=== PATIENT | female | born 1960 | race Caucasian/White ===

== ENCOUNTER 2018-11-11 13:01 | Observation (INO) | payer BC ==
[~2018-11-11] VITALS: Ht 154.9 cm; Wt 56.5 kg
[2018-11-11] MEDS ORDERED: HYDROmorphONE 2 MG/ML SYG IV STA (15:57)
[2018-11-11] MEDS ORDERED: ONDANSETRON 4 MG INJ IV STA (15:57)
[2018-11-11] MEDS ORDERED: SOD CHLORIDE 0.9% 0 ML IV ONE (16:46)
[2018-11-11] MEDS ORDERED: ONDANSETRON 4 MG INJ IV PRN ×2 (17:00→19:00)
[2018-11-11] MEDS ORDERED: ACETAMINOPHEN 325 MG TAB PO PRN ×2 (17:00→19:00)
[2018-11-11] MEDS ORDERED: OXYC10TA45 PO (17:07)
[2018-11-11 18:06] VITALS: BP 103/59; PULSE 96; RESP 18
[2018-11-11 18:13] VITALS: Ht 154.9 cm; Wt 56.5 kg
--- NOTE | 2018-11-11 18:45 | ERD ---
ER Documentation Chief Complaint Chief Complaint SENT BY MD FOR PORT PLACEMENT AND BEGIN CHEMO HPI Patient is a 58-year-old female with pancreatic cancer who presents with pain. The patient was sent by Dr. Lentz her oncologist for admission for pain control as well as placement of a port and starting chemotherapy. The patient h as upper abdominal pain which is constant and sharp in nature. It radiates to her back. She does not currently have a primary doctor. ROS All systems reviewed and are negative except as per history of present illness. Medications Home Meds Reported Medications Oxycodone Hcl* (Oxycontin*) 10 Mg Tab.sr.12h, 10 MG PO NEEDED, TAB 11/11/18 Allergies Allergies: Coded Allergies: No Known Allergy (Unverified , 11/11/18) PMhx/Soc Positive for pancreatic cancer History of Surgery: No (ovaries, fallopianj tube removed, breast impant) Anesthesia Reaction: No Hx Neurological Disorder: No Hx Respiratory Disorders: No Hx Cardiac Disorders: No Hx Psychiatric Problems: No Hx Miscellaneous Medical Probl: No Hx Alcohol Use: No Hx Substance Use: No Hx Tobacco Use: No Smoking Status: Never smoker FmHx Family History: diabetes Physical Exam Vitals Vital Signs Date Temp Pulse Resp B/P (MAP) Pulse Ox O2 O2 Flow FiO2 Time Delivery Rate 11/11/18 83 18 101/69 98 Room Air 17:00 (80) 11/11/18 98.4 102 18 120/66 99 13:04 (84) Physical Exam Const: No acute distress Head: Atraumatic Eyes: Normal Conjunctiva ENT: Normal External Ears, Nose and Mouth. Neck: Full range of motion. No meningismus. Resp: Clear to auscultation bilaterally Cardio: Regular rate and rhythm, no murmurs Abd: Soft, epigastric pain without rebound or guarding Skin: No petechiae or rashes Back: No midline or flank tenderness Ext: No cyanosis, or edema Neur: Awake and alert Psych: Normal Mood and Affect Result Diagram: 11/11/18 1609 11/11/18 1609 Results 24 hrs Laboratory Tests Test 11/11/18 16:09 White Blood Count 10.6 10^3/ul Red Blood Count 2.68 10^6/ul Hemoglobin 6.5 g/dl Hematocrit 20.4 % Mean Corpuscular Volume 76.1 fl Mean Corpuscular Hemoglobin 24.3 pg Mean Corpuscular Hemoglobin Concent 31.9 g/dl Red Cell Distribution Width 16.6 % Platelet Count 534 10^3/UL Mean Platelet Volume 8.3 fl Immature Granulocytes % 0.300 % Neutrophils % % Segmented Neutrophils % (Manual) 73 % Lymphocytes % % Lymphocytes % (Manual) 14 % Monocytes % % Monocytes % (Manual) 3 % Eosinophils % % Eosinophils % (Manual) 7 % Basophils % % Basophils % (Manual) 3 % Nucleated Red Blood Cells % 0.0 /100WBC Immature Granulocytes # 0.030 10^3/ul Neutrophils # 10^3/ul Lymphocytes (Manual) 1.4 10^3/ul Lymphocytes # 10^3/ul Monocytes # 10^3/ul Monocytes # (Manual) 0.3 10^3/ul Eosinophils # 10^3/ul Basophils # 10^3/ul Basophils # (Manual) 0.3 10^3/ul Nucleated Red Blood Cells # 10^3/ul Pathologist Review (Hematology) Platelet Estimate INCREASED Polychromasia 1+ Hypochromasia 2+ Anisocytosis 1+ Microcytosis 1+ Prothrombin Time 14.7 Sec Prothrombin Time Ratio 1.1 INR International Normalized Ratio 1.14 Activated Partial Thromboplast Time 22.8 Sec Path Consult Signing Pathologist GEMMA PRICE MD Sodium Level 135 mmol/L Potassium Level 4.0 mmol/L Chloride Level 97 mmol/L Carbon Dioxide Level 26 mmol/L Anion Gap 12 Blood Urea Nitrogen 19 mg/dl Creatinine 0.60 mg/dl Est Glomerular Filtrat Rate mL/min > 60 mL/min Glucose Level 154 mg/dl Calcium Level 8.8 mg/dl Total Bilirubin 0.5 mg/dl Direct Bilirubin 0.00 mg/dl Indirect Bilirubin 0.5 mg/dl Aspartate Amino Transf (AST/SGOT) 40 IU/L Alanine Aminotransferase (ALT/SGPT) 12 IU/L Alkaline Phosphatase 148 IU/L Troponin I < 0.012 ng/ml Total Protein 8.1 g/dl Albumin 3.8 g/dl Globulin 4.30 g/dl Albumin/Globulin Ratio 0.88 Lipase 1585 U/L Current Medications Medications Dose Sig/Edy Start Time Status Last (Trade) Ordered Route PRN Stop Time Admin Dose Reason Admin 1 mg ONCE STAT 11/11/18 DC 11/11/18 Hydromorphone IV 15:57 11/11/18 16:07 HCl 15:58 (Dilaudid) Ondansetron 4 mg ONCE STAT 11/11/18 DC 11/11/18 HCl (Zofran IV 15:57 11/11/18 16:06 Inj) 15:58 Ondansetron 4 mg BRIDGE ORDER 11/11/18 HCl (Zofran PRN IV 17:00 11/12/18 Inj) NAUSEA/VOMITI 16:59 NG 650 mg ER BRIDGE 11/11/18 Acetaminophen PRN PO 17:00 11/12/18 (Tylenol .MILD PAIN 16:59 Tab) 1-3 OR TEMP Sodium 0 ml @ 0 Q0M ONCE 11/11/18 DC Chloride mls/hr IV 16:46 11/11/18 16:47 Procedures/MDM Patient is a 58-year-old female who presents with anemia and pancreatic cancer. She has an elevated lipase as well. The patient will be admitted to the care of Dr. Ruiz from [facility] to a medical surgical bed. I spoke with Dr. Calvo from oncology who will see the patient in consultation. The patient was ordered 2 units of packed red blood cells for hemoglobin of 6.5. Critical Care: Time: 35 minutes excluding all billable procedures. Treatments/Evaluations: Close monitoring and treatment of unstable vital signs, cardiorespiratory, and neurologic status, while maintaining tight balance of fluid, respiratory, and cardiac interventions. Departure Diagnosis: Primary Impression: Pancreatic cancer Pancreatic malignancy location: unspecified Qualified Codes: C25.9 - Malignant neoplasm of pancreas, unspecified Additional Impressions: Anemia Anemia type: unspecified type Qualified Codes: D64.9 - Anemia, unspecified Abdominal pain Abdominal location: epigastric Qualified Codes: R10.13 - Epigastric pain Condition: SHANNON Dunaway MD Nov 11, 2018 18:44
[2018-11-11] MEDS ORDERED: SOD CHLORIDE 0.9% 250 ML IV* ONE (19:00)
[2018-11-11] MEDS ORDERED: FUROSEMIDE 40 MG INJ IV SCH (19:00)
[2018-11-11] MEDS ORDERED: ACETAMINOPHEN 325 MG TAB PO SCH (19:00)
[2018-11-11 19:29] VITALS: BP 101/65; PULSE 87; RESP 16
[2018-11-11] MEDS: morphine 4 MG/ML VIAL IV PRN ×2 (19:42→22:47)
[2018-11-12] MEDS: morphine 4 MG/ML VIAL IV PRN ×7 (01:10→15:01)
[2018-11-12 01:40] VITALS: BP 109/73; PULSE 87; RESP 16
[2018-11-12 07:15] VITALS: BP 108/74; PULSE 87; RESP 16
[2018-11-12] MEDS: morphine 2 MG INJ IV PRN ×2 (08:14→13:08)
--- NOTE | 2018-11-12 10:51 | QN ---
Documentation Comment 1. pancreatic ca 2. fe deficient anemia, start fe 3. await portacath timing RODO GREENE MD Nov 12, 2018 10:51
[2018-11-12] MEDS ORDERED: POLYETHYLENE GLYCOL 17 GM PACKET PO PRN (11:00)
[2018-11-12] MEDS ORDERED: SENNA TAB PO PRN (11:00)
[2018-11-12] MEDS ORDERED: FERROUS SULFATE (EC) 325 MG TAB PO SCH (13:00)
--- NOTE | 2018-11-12 14:12 | CONS ---
Assessment/Plan Assessment/Plan Assessment/Plan (Daily) 58 yo F with recent diagnosis of metastatic pancreatic cancer presents for port placement and administration of chemotherapy. Found to be anemic upon admission, responded well to PRBC transfusion. If there is significant delay to initiate chemotherapy, will discuss with primary oncologist about close outpatient follow-up. - pain control- home regimen: morphine ER 30q12, oxycodone 10mg q6 prn - bowel regimen: senna, miralax - continue iron Thank you for allowing me to participate in this patient's care. Consultation Date/Type/Reason Admit Date/Time Nov 11, 2018 at 17:05 Date of Consultation: Nov 12, 2018 Reason for Consultation pancreatic cancer Date/Time of Note DATE: 11/12/18 TIME: 12:56 Hx of Present Illness 58 yo F with remote history of cervical cancer and recent diagnosis of metastatic pancreatic cancer presents for port placement and initiation of chemotherapy. She is followed by Dr Hugo Lentz as an outpatient. She initially presented with 20lb weight loss, significant abdominal pain and nausea and vomiting. She underwent imaging and liver biopsy with results compatible with GI cancer of pancreatic origin. She is due to start FOLFIRINOX chemotherapy which requires port placement. She has persistent significant abdominal pain. On admission, she was noted to be anemic, hemoglobin 6.5 and received a blood transfusion. Constitutional: No no complaints, No improved, No chills, No diaphoresis, No disoriented, No febrile, No poor po, No requiring IVF, No requiring O2, No other Eyes: No no complaints, No pain, No discharge, No redness, No visual change, No other ENT: No no complaints, No bleeding, No pain, No congestion, No discharge, No dysphagia, No sore throat, No other Respiratory: No no complaints, No pain, No cough, No pleuritic pain, No shortness of breath, No sputum, No wheezing, No other Cardiovascular: No no complaints, No chest pain, No edema, No lightheadedness, No orthopenea, No palpitations, No paroxysmal nocturnal dyspnea, No other Gastrointestinal: pain, constipation, decreased appetite Genitourinary: No no complaints, No bleeding, No dysuria, No discharge, No flank pain, No hematuria, No other Musculoskeletal: No no complaints, No back pain, No bone/joint pain, No neck pain, No restricted range of motion, No swelling, No other Skin: No no complaints, No bruising, No erythema, No laceration, No pruritis, No rash, No skin lesions, No other Neurologic: No no complaints, No confusion, No dizziness, No focal-weakness, No headache, No syncope, No seizure, No other Endocrine: No no complaints, No polyuria, No polydypsia, No dry skin, No temp intolerance, No other Lymphatic: No no complaints, No adenopathy, No tender nodes, No lymphadema, No other Psychological: No no complaints, No nl mood/affect, No anxiety, No confusion, No depression, No suicidal, No other Immunologic: No no complaints, No immunodeficiency, No pruritis, No rhinitis, No urticaria, No other Past Medical History Medical History: other (history of cervical cancer s/p radiation and chemotherapy) Home Meds Reported Medications Oxycodone Hcl* (Oxycontin*) 10 Mg Tab.sr.12h, 10 MG PO NEEDED, TAB 11/11/18 Medications Current Medications Ondansetron HCl (Zofran Inj) 4 mg BRIDGE ORDER PRN IV NAUSEA/VOMITING; Start 11/11/18 at 17:00; Stop 11/12/18 at 16:59 Acetaminophen (Tylenol Tab) 650 mg ER BRIDGE PRN PO .MILD PAIN 1-3 OR TEMP; Start 11/11/18 at 17:00; Stop 11/12/18 at 16:59 Furosemide (Lasix) 40 mg ONCE IV Last administered on 11/12/18at 00:42; Admin Dose 40 MG; Start 11/11/18 at 19:00; Stop 11/12/18 at 18:59 Acetaminophen (Tylenol Tab) 650 mg ONCE PO Last administered on 11/11/18at 20:40; Admin Dose 650 MG; Start 11/11/18 at 19:00; Stop 11/12/18 at 18:59 Acetaminophen (Tylenol Tab) 650 mg Q4H PRN PO MILD PAIN(1-3)OR ELEVATED TEMP; Start 11/11/18 at 19:00 Hydralazine HCl (Apresoline) 25 mg Q6H PRN PO sbp>160; Start 11/11/18 at 19:00 Ondansetron HCl (Zofran Inj) 4 mg Q4H PRN IV NAUSEA AND/OR VOMITING; Start 11/11/18 at 19:00 Morphine Sulfate (morphine) 2 mg Q2H PRN IV pain 3-6/10 Last administered on 11/12/18at 13:08; Admin Dose 2 MG; Start 11/11/18 at 19:00 Morphine Sulfate (morphine) 4 mg Q2H PRN IV SEVERE PAIN LEVEL 7-10 Last admi nistered on 11/12/18at 11:13; Admin Dose 4 MG; Start 11/11/18 at 19:00 Ferrous Sulfate (Ferrous Sulfate (Ec)) 325 mg TID PO Last administered on 11/12/18at 13:07; Admin Dose 325 MG; Start 11/12/18 at 13:00 Polyethylene Glycol (Miralax) 17 gm DAILY PRN PO CONSTIPATION; Start 11/12/18 at 11:00 Senna (Senokot) 2 tab BID PRN PO CONSTIPATION; Start 11/12/18 at 11:00 Allergies: Coded Allergies: No Known Allergy (Unverified , 11/11/18) Family History Significant Family History: no pertinent family hx Social History Smoking Status: Never smoker Exam/Review of Systems Exam Vitals Vital Signs Date Temp Pulse Resp B/P (MAP) Pulse Ox O2 O2 Flow FiO2 Time Delivery Rate 11/12/18 98.1 87 16 108/74 97 07:15 (85) 11/12/18 Room Air 01:40 Intake and Output 11/11/18 11/11/18 11/12/18 1515:00 23:00 07:00 IntakeIntake Total 930 ml OutputOutput Total 700 ml BalanceBalance 230 ml Constitutional: alert, oriented, well developed Psych: nl mood/affect Head: normocephalic, atraumatic Eyes: nl conjunctiva, nl sclera ENMT: mucosa pink and moist Neck: supple Respiratory: clear to auscultation, normal air movement Cardiovascular: regular rate and rhythm Gastrointestinal: soft, tender Musculoskeletal: nl extremities to inspection Extremities: normal pulses Neurological: BODY JOINER II-XII intact Results Result Diagram: 11/12/18 1059 11/12/18 1059 Results 24hrs Laboratory Tests Test 11/11/18 16:09 11/11/18 19:48 11/12/18 00:25 11/12/18 10:59 White Blood Count 10.6 9.5 Red Blood Count 2.68 L 4.33 # Hemoglobin 6.5 *L 11.4 #L Hematocrit 20.4 L 35.2 #L Mean Corpuscular 76.1 L 81.3 L Volume Mean Corpuscular 24.3 L 26.3 L Hemoglobin Mean Corpuscular 31.9 L 32.4 Hemoglobin Concent Red Cell 16.6 H 15.9 H Distribution Width Platelet Count 534 H 442 H Mean Platelet 8.3 8.2 Volume Immature 0.300 0.200 Granulocytes % Neutrophils % 63.7 Segmented 73 Neutrophils % (Manual) Lymphocytes % 13.5 L Lymphocytes % 14 L (Manual) Monocytes % 7.7 Monocytes % 3 (Manual) Eosinophils % 14.4 H Eosinophils % 7 (Manual) Basophils % 0.5 Basophils % 3 H (Manual) Nucleated Red 0.0 0.0 Blood Cells % Immature 0.030 0.020 Granulocytes # Neutrophils # 6.0 Lymphocytes 1.4 (Manual) Lymphocytes # 1.3 Monocytes # 0.7 Monocytes # 0.3 (Manual) Eosinophils # 1.4 H Basophils # 0.1 Basophils # 0.3 H (Manual) Nucleated Red 0.0 Blood Cells # Pathologist Review (Hematology ) Platelet Estimate INCREASED Polychromasia 1+ Hypochromasia 2+ Anisocytosis 1+ Microcytosis 1+ Absolute 0.044 Reticulocyte Count Percent 1.6 H Reticulocyte Count Prothrombin Time 14.7 14.6 Prothrombin Time 1.1 1.1 Ratio INR International 1.14 1.13 Normalized Ratio Activated 22.[address] Time Path Consult GEMMA PRICE Signing Pathologis MD leon Sodium Level 135 139 Potassium Level 4.0 4.1 Chloride Level 97 100 Carbon Dioxide 26 25 Level Anion Gap 12 14 H Blood Urea 19 12 Nitrogen Creatinine 0.60 0.49 Est Glomerular > 60 > 60 Filtrat Rate mL/min Glucose Level 154 87 # Calcium Level 8.8 9.3 Total Bilirubin 0.5 Direct Bilirubin 0.00 Indirect Bilirubin 0.5 Aspartate Amino 40 Transf (AST/SGOT) Alanine 12 L Aminotransferase ( ALT/SGPT) Alkaline 148 H Phosphatase Troponin I < 0.012 Total Protein 8.1 Albumin 3.8 Globulin 4.30 H Albumin/Globulin 0.88 Ratio Lipase 1585 H Vitamin B12 Level 329 Folate > 20.0 H Iron Level 17 L Total Iron Binding 240 L Capacity Percent Iron 7 L Saturation Urine Color STRAW Urine Clarity CLEAR Urine pH 6.0 Urine Specific 1.008 [place] Urine Ketones NEGATIVE Urine Nitrite NEGATIVE Urine Bilirubin NEGATIVE Urine Urobilinogen NEGATIVE Urine Leukocyte NEGATIVE Esterase Urine Hemoglobin NEGATIVE Urine Glucose NEGATIVE Urine Total NEGATIVE Protein Medications Medication Current Medications Ondansetron HCl (Zofran Inj) 4 mg BRIDGE ORDER PRN IV NAUSEA/VOMITING; Start 11/11/18 at 17:00; Stop 11/12/18 at 16:59 Acetaminophen (Tylenol Tab) 650 mg ER BRIDGE PRN PO .MILD PAIN 1-3 OR TEMP; Start 11/11/18 at 17:00; Stop 11/12/18 at 16:59 Furosemide (Lasix) 40 mg ONCE IV Last administered on 11/12/18at 00:42; Admin Dose 40 MG; Start 11/11/18 at 19:00; Stop 11/12/18 at 18:59 Acetaminophen (Tylenol Tab) 650 mg ONCE PO Last administered on 11/11/18at 20:40; Admin Dose 650 MG; Start 11/11/18 at 19:00; Stop 11/12/18 at 18:59 Acetaminophen (Tylenol Tab) 650 mg Q4H PRN PO MILD PAIN(1-3)OR ELEVATED TEMP; Start 11/11/18 at 19:00 Hydralazine HCl (Apresoline) 25 mg Q6H PRN PO sbp>160; Start 11/11/18 at 19:00 Ondansetron HCl (Zofran Inj) 4 mg Q4H PRN IV NAUSEA AND/OR VOMITING; Start 11/11/18 at 19:00 Morphine Sulfate (morphine) 2 mg Q2H PRN IV pain 3-6/10 Last administered on 11/12/18at 13:08; Admin Dose 2 MG; Start 11/11/18 at 19:00 Morphine Sulfate (morphine) 4 mg Q2H PRN IV SEVERE PAIN LEVEL 7-10 Last administered on 11/12/18at 11:13; Admin Dose 4 MG; Start 11/11/18 at 19:00 Ferrous Sulfate (Ferrous Sulfate (Ec)) 325 mg TID PO Last administered on 11/12/18at 13:07; Admin Dose 325 MG; Start 11/12/18 at 13:00 Polyethylene Glycol (Miralax) 17 gm DAILY PRN PO CONSTIPATION; Start 11/12/18 at 11:00 Senna (Senokot) 2 tab BID PRN PO CONSTIPATION; Start 11/12/18 at 11:00 OSEI MILLER MD Nov 12, 2018 14:06
[2018-11-12 14:52] VITALS: BP 120/75; PULSE 93; RESP 16
[2018-11-12] MEDS ORDERED: FER325 PO (14:59)
--- NOTE | 2018-11-12 15:01 | PDOCDIS ---
Discharge Instructions DIAGNOSIS Discharge Diagnosis 1. Iron deficiency anemia 2. pancreatic cancer CONDITION [id number] Patient Condition: Wxxen2g Fair HOME CARE INSTRUCTIONS: [id number] Diet Instructions: [id number] Regular ACTIVITY: [id number] Activity Restrictions: [id number] No Restrictions FOLLOW UP/APPOINTMENTS Follow-up Plan 1. you will be contacted by a vocational childcare teacher with [facility] to facilitate an appointment for portacath placement for this week 2. use over the counter laxatives per the package instructions for constipation, I recommend that you start with senna or RODO Perez MD Nov 12, 2018 15:01
--- NOTE | 2018-11-12 15:33 | HP ---
DATE OF ADMISSION: 11/11/2018 CHIEF COMPLAINT: Anemia. HISTORY OF PRESENT ILLNESS: Ms. Rush presents to the emergency room at [facility] at the direction of her oncologist for anemia. She is noted to have a hemoglobin in the 6.4 range and is ad mitted for transfusion. At this time she is complaining only of chronic abdominal pain related to wagner creatic cancer. PAST MEDICAL HISTORY: Significant for pancreatic cancer. MEDICATIONS: Outpatient include Oxycodone. ALLERGIES: NO KNOWN DRUG ALLERGIES. SOCIAL HISTORY: The patient lives at home in [place] with her , daughter and grandchildren. S he is independent of activities of daily living. Denies tobacco, alcohol, or illicit drug use. FAMILY HISTORY: Noncontributory. REVIEW OF SYSTEMS: Five systems reviewed and notable for occasional vomiting with eating. Chronic a bdominal and back pain related to her cancer and constipation. All other systems reviewed are negati ve. PHYSICAL EXAMINATION: VITAL SIGNS: Blood pressure is 108/74, pulse rate 87, respirations 16, temperature is 98.1. GENERAL: Pleasant woman in no acute distress. Alert and oriented x3. HEENT: Normocephalic, atraumatic without evident scleral icterus, perioral cyanosis. Mucous membran es are moist. NECK: Soft and supple without masses. No jugular venous distention or carotid bruits. CHEST: Clear to auscultation and percussion bilaterally. HEART: Regular rate and rhythm, S1-S2, no added sounds. ABDOMEN: Soft, nontender, nondistended without palpable hepatosplenomegaly. EXTREMITIES: Without clubbing, cyanosis or edema. SKIN: Without rashes. NEUROLOGIC: Grossly intact. LABORATORY STUDIES: Reveal hemoglobin of 6.5 g/dL, white count of 10,600, platelets of 534,000. INR is 1.1, sodium 135, potassium 4.0, chloride 97, bicarbonate 26, BUN 19, creatinine 0.6, glucose 154. Liver function tests remarkable only for an alkaline phosphatase of 148. Iron studies do reveal ir on deficiency with a percent saturation of 7. UA is negative for signs of infection. ASSESSMENT AND PLAN: 1. Iron deficiency anemia, likely related to malignancy. We will plan to transfuse at this time. P shira to discharge with oral iron. 2. Pancreatic cancer. Will attempt to place a Port-A-Cath at the request of patient's oncologist. If this is not feasible over the weekend, we will plan to try and arrange followup appointment for th is. Dictated By: RODO GREENE MD RER/NTS Conf#: [id number] DID#: [id number]
== END 2018-11-12 15:58 | disposition home or self-care (01) ==
LOC: E/R 13:01 → 2NE 17:05 → EDBEDREQ 17:07
PROVIDERS: ADMIT Legal Medicine; ATTEND Legal Medicine
DX: C25.9 Malignant neoplasm of pancreas, unspecified (principal); D50.9 Iron deficiency anemia, unspecified
CPT/HCPCS: 36415; 36430; 71045; 80048; 80053; 81003; 82607; 82746; 83540; 83690; 84484; 85025; 85045; 85610; 85730; 86850; 86900; 86901; 86920; 93005; 96374; 96375; 99291; G0378; J1170; J1940; J2270; J2405; J7040; P9016

== ENCOUNTER 2019-01-25 13:06 | Emergency (ER) | payer BC ==
[~2019-01-25] VITALS: Ht 160 cm; Wt 50.3 kg
[~2019-01-25 13:06] MED LIST: FER325 PO; OXYC10TA45 PO
[2019-01-25 13:10] VITALS: Ht 160 cm; Wt 50.3 kg
[2019-01-25] MEDS ORDERED: SOD CHLORIDE 0.9% 0 ML IV ONE (14:02)
[2019-01-25] MEDS ORDERED: ALTEPLASE (CATHFLO) 2 MG INJ CATHETER PRN (14:30)
[2019-01-25] MEDS ORDERED: POTASSIUM CHLORIDE (SR) 20 MEQ TAB PO STA (17:16)
[2019-01-25] MEDS ORDERED: ACETAMINOPHEN 325 MG TAB PO PRN (18:30)
[2019-01-25] MEDS ORDERED: ONDANSETRON 4 MG INJ IV PRN (18:30)
--- NOTE | 2019-01-25 19:02 | ERD ---
ER Documentation Chief Complaint Chief Complaint c/o weakness and dizz, sent by PMD for pos blood transfussion. hx: wagner CA HPI Patient is a 58-year-old female with pancreatic cancer who presents with anemia. The patient denies any bleeding but was sent by her oncologist for transfusion. She has a history of pancreatic cancer and last had chemo on January 05. Her hemoglobin was 7.2 on outpatient laboratory studies done on January 18. She feels dizzy, weak, and had a near syncopal event when standing. She does not remember the name of her primary doctor. ROS All systems reviewed and are negative except as per history of present illness. Medications Home Meds Reported Medications Oxycodone Hcl* (Oxycontin*) 10 Mg Tab.sr.12h, 10 MG PO NEEDED, TAB 11/11/18 Discontinued Scripts Ferrous Sulfate* (Ferrous Sulfate*) 325 Mg Tabec, 325 MG PO TID, #90 TAB Prov:RODO GREENE MD 11/12/18 Allergies Allergies: Coded Allergies: No Known Allergy (Unverified , 01/25/19) PMhx/Soc History of Surgery: No (ovaries, fallopianj tube removed, breast impant) Anesthesia Reaction: No Hx Neurological Disorder: No Hx Respiratory Disorders: No Hx Cardiac Disorders: No Hx Psychiatric Problems: No Hx Miscellaneous Medical Probl: Yes (CERVICAL CA, PANCREATIC CA, LIVER CA - ON CHEMO) Hx Alcohol Use: Yes (OOC) Hx Substance Use: No Hx Tobacco Use: No Smoking Status: Never smoker FmHx Family History: diabetes Physical Exam Vitals Vital Signs Date Temp Pulse Resp B/P (MAP) Pulse Ox O2 O2 Flow FiO2 Time Delivery Rate 01/25/19 98.7 67 20 99/71 (80) 96 Room Air 16:32 01/25/19 98.4 70 18 144/68 100 Room Air 15:17 (93) 01/25/19 Nasal 1.0 14:44 Cannula 01/25/19 99.3 76 20 111/66 100 13:10 (81) Physical Exam Const: No acute distress Head: Atraumatic Eyes: Normal Conjunctiva ENT: Normal External Ears, Nose and Mouth. Neck: Full range of motion. No meningismus. Resp: Clear to auscultation bilaterally Cardio: Regular rate and rhythm, no murmurs Abd: Soft, non tender, non distended. Normal bowel sounds Skin: Pale skin Back: No midline or flank tenderness Ext: No cyanosis, or edema Neur: Awake and alert Psych: Normal Mood and Affect Result Diagram: 01/25/19 1449 01/25/19 1449 Results 24 hrs Laboratory Tests Test 01/25/19 14:49 White Blood Count 5.0 10^3/ul Red Blood Count 2.40 10^6/ul Hemoglobin 6.9 g/dl Hematocrit 21.9 % Mean Corpuscular Volume 91.3 fl Mean Corpuscular Hemoglobin 28.8 pg Mean Corpuscular Hemoglobin Concent 31.5 g/dl Red Cell Distribution Width 25.5 % Platelet Count 248 10^3/UL Mean Platelet Volume 8.3 fl Immature Granulocytes % 0.200 % Neutrophils % % Segmented Neutrophils % (Manual) 72 % Lymphocytes % % Lymphocytes % (Manual) 20 % Monocytes % % Monocytes % (Manual) 6 % Eosinophils % % Eosinophils % (Manual) 1 % Basophils % % Basophils % (Manual) 1 % Nucleated Red Blood Cells % 1 % Immature Granulocytes # 0.010 10^3/ul Neutrophils # 10^3/ul Lymphocytes (Manual) 1.0 10^3/ul Lymphocytes # 10^3/ul Monocytes # 10^3/ul Monocytes # (Manual) 0.3 10^3/ul Eosinophils # 10^3/ul Basophils # 10^3/ul Basophils # (Manual) 0.0 10^3/ul Nucleated Red Blood Cells # 10^3/ul Pathologist Review (Hematology) YES Hypochromasia 1+ Poikilocytosis 1+ Anisocytosis 1+ Microcytosis 1+ Macrocytosis 1+ Prothrombin Time 15.3 Sec Prothrombin Time Ratio 1.2 INR International Normalized Ratio 1.20 Activated Partial Thromboplast Time 28.6 Sec Sodium Level 138 mmol/L Potassium Level 3.1 mmol/L Chloride Level 108 mmol/L Carbon Dioxide Level 26 mmol/L Anion Gap 4 Blood Urea Nitrogen 10 mg/dl Creatinine 0.41 mg/dl Est Glomerular Filtrat Rate mL/min > 60 mL/min Glucose Level 145 mg/dl Calcium Level 7.5 mg/dl Total Bilirubin 0.5 mg/dl Direct Bilirubin 0.00 mg/dl Indirect Bilirubin 0.5 mg/dl Aspartate Amino Transf (AST/SGOT) 23 IU/L Alanine Aminotransferase (ALT/SGPT) 16 IU/L Alkaline Phosphatase 94 IU/L Troponin I < 0.012 ng/ml Total Protein 6.2 g/dl Albumin 2.8 g/dl Globulin 3.40 g/dl Albumin/Globulin Ratio 0.82 Current Medications Medications Dose Sig/Edy Start Time Status Last (Trade) Ordered Route PRN Stop Time Admin Dose Reason Admin Sodium 0 ml @ 0 Q0M ONCE 01/25/19 DC Chloride mls/hr IV 14:02 01/25/19 14:03 Alteplase, 2 mg MAY REPEAT 01/25/19 01/25/19 Recombinant X1 PRN 14:30 14:41 (Cathflo CATHETER IF (Activase)) CATHETER REMAINS OCCULUDED Potassium 40 meq ONCE STAT 01/25/19 DC 01/25/19 Chloride PO 17:16 17:56 (Klor-Con 20) 01/25/19 17:18 Ondansetron 4 mg BRIDGE ORDER 01/25/19 HCl (Zofran PRN IV 18:30 Inj) NAUSEA/VOMITI 01/26/19 18:29 NG 650 mg ER BRIDGE 01/25/19 Acetaminophen PRN PO 18:30 (Tylenol .MILD PAIN 01/26/19 18:29 Tab) 1-3 OR TEMP Procedures/MDM EKG read by me: Rate/Rhythm: Regular rate and rhythm at a normal rate Intervals: Normal Impression: No evidence of ischemia or arrhythmia Patient is a 58-year-old female who presents with anemia. Patient has a hemoglobin of 6.9. I have ordered 2 units of packed red blood cells for transfusion. The patient has symptomatic anemia. I have sent a message to Dr. Delgado the renal doctor on-call via [employer] for admission. The patient will be admitted to a medical surgical observation bed for transfusion. Departure Diagnosis: Primary Impression: Anemia Anemia type: unspecified type Qualified Codes: D64.9 - Anemia, unspecified Additional Impression: Acute weakness Condition: SHANNON Dunaway MD January 25, 2019 19:02
[2019-01-25 21:15] VITALS: BP 126/82; PULSE 58; RESP 18
== END 2019-01-25 21:28 | disposition home or self-care (01) ==
LOC: E/R 13:06 → CANBEDREQ 01-26 08:24
DX: D64.9 Anemia, unspecified (principal); R40.2142 Coma scale, eyes open, spontaneous, at arrival to emergency department; R40.2362 Coma scale, best motor response, obeys commands, at arrival to emergency department; R40.2252 Coma scale, best verbal response, oriented, at arrival to emergency department; C53.9 Malignant neoplasm of cervix uteri, unspecified; C25.9 Malignant neoplasm of pancreas, unspecified; C22.9 Malignant neoplasm of liver, not specified as primary or secondary
CPT/HCPCS: 36415; 36430; 80053; 84484; 85025; 85610; 85730; 86850; 86900; 86901; 86920; 93005; 99285; J2997; J7040; P9016

== ENCOUNTER 2019-05-04 12:53 | Emergency (ER) | payer BC ==
[~2019-05-04] VITALS: Ht 154.9 cm; Wt 48.8 kg
[~2019-05-04 12:53] MED LIST changes: +ALPR0.5T PO; +DIPH1TAB25 PO; -FER325 PO
[2019-05-04 12:58] VITALS: Ht 154.9 cm; Wt 48.8 kg
[2019-05-04] MEDS ORDERED: SOD CHLORIDE 0.9% 0 ML IV ONE (13:40)
[2019-05-04] MEDS ORDERED: HEPARIN (100 UNITS/ML) 5 ML SYG CATHETER ONE (19:30)
[2019-05-04 21:55] VITALS: BP 98/57; PULSE 87; RESP 16
== END 2019-05-04 21:57 | disposition home or self-care (01) ==
LOC: E/R 12:53
DX: D64.9 Anemia, unspecified (principal); C25.9 Malignant neoplasm of pancreas, unspecified; C53.9 Malignant neoplasm of cervix uteri, unspecified; C22.9 Malignant neoplasm of liver, not specified as primary or secondary
CPT/HCPCS: 36415; 36430; 80048; 85025; 86850; 86900; 86901; 86920; 99285; J1642; J7040; P9016